=== PATIENT | male | born 1975 | race Caucasian/White ===

== ENCOUNTER 2025-07-03 14:34 | Emergency (ER) | payer OTHER, SELFPAY ==
[2025-07-03 14:35] VITALS: BP 149/101; PULSE 92; RESP 16; TEMP 36.9; O2SAT 99; BMI 23.1
--- NOTE | 2025-07-03 15:01 | EX.ED.DYSGE1 ---
HPI History of Present Illness Chief Complaint: Complaint Informant: patient Onset/Context/Timing Onset: Days (5) Context: Gradual Onset Timing: Continuous Quality: Pressure, pinching Location: Suprapubic area Worsened by: Drinking coffee Relieved by: Nothing Narrative Narrative: Patient presents with urinary retention that has been getting worse over the past 5 days. Patient states it is gradually getting worse. Patient states that in the morning when he first urinates, there is a small pinching sensation in his bladder area. Patient states that he feels pressure in his bladder the rest of the day. Patient denies any fevers or chills. Patient denies any nausea or vomiting. Patient also admits to some upper abdominal pain. Patient states he feels this is due to the distended bladder pushing other organs in his abdomen. Patient states his pain radiates into his lower back. Patient also admits to mild headache. Patient denies any hematuria. PFSH PFSH Medical History no medical history no medical history Allergy/AdvReac Type Severity Reaction Status Date / Time No Known Allergies Allergy Verified 07/03/25 14:36 Family History no significant family his Surgical History no surgical history no surgical history Social History Smoking Status: Never smoker ROS ROS ED Constitutional Constitutional ED: Denies chills or fever(s) Eyes Eyes: Denies blurry vision or change in vision ENT ENT ED: Denies rhinorrhea or sore throat Cardiovascular Cardiovascular: Denies chest pain or palpitations Respiratory/Chest Respiratory/Chest: Denies cough or dyspnea Gastrointestinal Gastrointestinal: Reports abdominal pain; Denies nausea or vomiting Genitourinary Genitourinary ED: Reports dysuria and urinary frequency; Denies hematuria Musculoskeletal Musculoskeletal: Reports back pain; Denies neck pain Integumentary Denies abscess or rash Neurologic Neurologic: Reports headache(s); Denies weakness Allergic/Immunologic Allergic/Immunologic ED: Denies mouth swelling or urticaria EXAM Physical Exam Const Vital Signs: 07/03/25 14:35 07/03/25 16:35 Temperature 98.5 F Temperature Source Oral Pulse Rate 92 77 Respiratory Rate 16 Blood Pressure 149/101 H 129/96 H Blood Pressure Mean 117 107 Pulse Ox 99 97 Oxygen Delivery Method Room Air Room Air Positive well nourished and well developed General Appearance ED: well developed and NAD HEENT Reports moist mucous membranes Neck supple and no JVD Resp normal respiratory effort and clear to auscultation bilaterally Cardio regular rate and regular rhythm GI non-distended GI Narrative: There is diffuse tenderness but worse over the suprapubic area. Bladder appears to be distended. There is no rebound or guarding noted. Palpation: soft and tender epigastric, LLQ, RLQ, LUQ, RUQ, periumbilical and suprapubic; Negative for guarding or rebound tenderness present Neuro oriented x3, CN's II-XII intact bilaterally and no sensory deficits noted Sensorium / Orientation: alert Motor Exam: strength 5/5 throughout Psych mental status grossly normal MDM MDM MDM Narrative Medical decision making narrative: Differential diagnosis includes urinary retention, urinary tract infection, and prostatic hypertrophy. Urinalysis will be obtained to assess for urinary tract infection and hematuria. Bladder scan will be obtained to assess for urinary retention. Lab Data Attestation: I reviewed the patient's lab results. Lab results narrative: Urinalysis was reviewed. There is no evidence of urinary tract infection or hematuria. Labs: Laboratory Results - last 24 hr 07/03/25 15:45 Urine Color Yellow Urine Clarity Clear Urine pH 6.0 Ur Specific [place] 1.010 Urine Protein Negative Urine Glucose (UA) Normal Urine Ketones Negative Urine Occult Blood Negative Urine Nitrite Negative Urine Bilirubin Negative Urine Urobilinogen Normal Ur Leukocyte Esterase Negative Urine RBC 0-5 SEEN Urine WBC 0-5 SEEN Ur Squamous Epith Cells 0 SEEN Urine Bacteria RARE Urine Mucus 0 SEEN Treatment and Re-Evaluation :: Patient was able to void 500 cc of urine. Straight cath was placed and returned 300 cc of urine after the patient voided. Patient feels better on reevaluation. Patient was advised of his findings. Patient was advised that this is likely from prostatic hypertrophy. Patient was instructed to follow-up with his primary care physician in 5 to 7 days. Patient was also given a referral for urology. Patient was instructed to return if worse in any way. Patient understood and was agreeable with the plan. All questions were answered. Discharge Plan Triage Chief Complaint: Complaint ED Provider: Tahir Petersen Dx/Rx/DC Orders Clinical Impression: Urinary retention, Elevated blood pressure reading without diagnosis of hypertension Instructions: ED Urinary Retention, Male Primary Care Provider: Care Physician,No Primary Referrals: Raul North MD [Outside] - 5-7 Days Tom Carson MD [Med Staff - Active Staff, Urology] - 5-7 Days Care Physician,No Primary [Primary Care Provider, Medical] Print Language: Luxem[place] Disposition Disposition: Home, Self Care
[2025-07-03 15:51] LABS: Mucous, Urine 0 SEEN /hpf (<or=2+); Squamous Epithelial Cells - UA 0 SEEN /hpf (0-5)
[2025-07-03 15:55] LABS: Color, Urine Yellow (Yellow); Glucose, Dipstick Normal (Normal); Ketone-Dipstick Negative (Negative); Leukocyte Esterase-Dipstick Negative /ul (Negative); Nitrite-Dipstick Negative (Negative); Occult Blood-Urine Negative /ul (Negative); Protein-Dipstick Negative (Negative); Specific Gravity, Urine 1.010 (1.002-1.030); Urine Bilirubin Dipstick Negative (Negative)
[2025-07-03 16:22] LABS: Red Blood Cells-Urine 0-5 SEEN /hpf (0-5)
[2025-07-03 16:35] VITALS: BP 129/96; PULSE 77; O2SAT 97
--- NOTE | 2025-07-03 16:42 | ED.RN ---
Pt urinated 500ML and was straight cathed for 300ML
[2025-07-03 17:20] VITALS: BP 129/96; PULSE 77; RESP 16; TEMP 37; O2SAT 97
== END 2025-07-03 17:23 | disposition home or self-care (01) ==
PROVIDERS: Emergency Provider Emergency Medicine; Visit Provider Emergency Medicine
DX: R33.9 Retention of urine, unspecified (principal); R03.0 Elevated blood-pressure reading, without diagnosis of hypertension
CPT/HCPCS: 81001; 99283; P9612

== ENCOUNTER → 2025-07-09 | Outpatient (CLI) | payer OTHER, SELFPAY ==
[2025-07-09 11:36] LABS: PSA,Total - Annual Screen 0.26 ng/mL (0.02-4.00)
== END | disposition home or self-care (01) ==
LOC: LAB 10:23
PROVIDERS: PCP Family Medicine; Referring Provider Nurse Practitioner; Visit Provider Nurse Practitioner
DX: Z12.5 Encounter for screening for malignant neoplasm of prostate (principal)
CPT/HCPCS: 36415; 84153; G0103